=== PATIENT | female | born 1970 | race Two or more races ===

== ENCOUNTER 2024-01-11 13:27 | Emergency (ER) | payer OTHER ==
[~2024-01-11] VITALS: Ht 172.7 cm; Wt 52.2 kg
[~2024-01-11 13:27] MED LIST: ADVAIR 2501 DISK W/1 IH; ADVAIR HFA 115/12 GM; EFFEXOR XR75 MG; MECLIZINE HCL25 MG PO; PEPCID40 MG PO; PRENATAL1 TAB PO; PROVENTIL HFA6.7 GM IH; PROVENTIL17 G1; SYNTHROID100 MCG; SYNTHROID75 MCG; ZOFRAN4 MG PO
[2024-01-11] MEDS ORDERED: SYNTHROID50 MCG (13:33)
[2024-01-11] MEDS ORDERED: IPRATROPIUM/ALBUTEROL SULFATE 3 ML AMPUL.NEB IH STA (15:30)
[2024-01-11] MEDS ORDERED: ACETAMINOPHEN 500 MG GEL..CAP PO STA (15:32)
[2024-01-11] MEDS ORDERED: 0.9 % SODIUM CHLORIDE 500 ML IV STA (15:32)
[2024-01-11] MEDS ORDERED: ACETAMINOPHEN 500 MG GEL..CAP PO ONE (15:53)
[2024-01-11 16:27] LABS: HEMATOCRIT 35.4 % (36.0-45.00); HEMOGLOBIN 11.7 g/dL (12.0-15.00); MEAN CELL VOLUME 89.1 fL (80.00-100.00); MEAN CORPUSCULAR HEMOGLOBIN 29.5 pg (27.00-32.0); MEAN CORPUSCULAR HGB CONC 33.1 g/dl (32.0-36.0); PLATELET COUNT 234 K/uL (150-450); RED BLOOD COUNT 3.98 M/uL (4.00-6.00); RED CELL DISTRIBUTION WIDTH 14.7 % (11.5-14.5)
[2024-01-11] MEDS ORDERED: AIRSUPRA 90-810.7 GM IH (16:50)
[2024-01-11] MEDS ORDERED: IPRATROPIUM/ALBUTEROL SULFATE 3 ML AMPUL.NEB IH ONE (16:52)
== END 2024-01-11 19:00 | disposition home or self-care (01) ==
LOC: ER 13:28
PROVIDERS: General Practice
DX: B34.9 Viral infection, unspecified (principal); J00 Acute nasopharyngitis [common cold]; Z20.822 Contact with and (suspected) exposure to COVID-19; Z88.1 Allergy status to other antibiotic agents